=== PATIENT | male | born 1960 | race Asian ===

== ENCOUNTER 2017-06-30 20:21 | Emergency (ER) | payer OTHER, BC ==
[2017-06-30 20:47] VITALS: BP 160/98
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
== END 2017-07-01 00:05 | disposition home or self-care (01) ==
LOC: ED 20:21
DX: S39.012A Strain of muscle, fascia and tendon of lower back, initial encounter (principal); S00.83XA Contusion of other part of head, initial encounter; V47.6XXA Car passenger injured in collision with fixed or stationary object in traffic accident, initial encounter; Z87.891 Personal history of nicotine dependence; Y93.89 Activity, other specified; Y92.89 Other specified places as the place of occurrence of the external cause; Y99.8 Other external cause status
CPT/HCPCS: 70450; 99283

== ENCOUNTER 2019-12-03 12:31 | Emergency (ER) | payer SELFPAY ==
[2019-12-04 00:20] VITALS: BP 169/109
--- NOTE | 2019-12-04 00:20 | Emergency Department Report ---
HPI - General Time Seen by Provider: 12/04/19 00:09 - HPI HPI: Room 4 *Please note the patient was originally registered under a different ) and labs and imaging studies were under this account. The patient is a 59-year-old male present with a chief complaint of bilateral shoulder pain. Patient states he first #pain in his right shoulder 3 weeks ago. Patient denies any preceding trauma. The patient states the pain has mostly improve but 2 days ago he developed pain in his left shoulder. Again the patient denies preceding trauma. Patient denies history of fever or new rashes. Patient admits to pain with range of motion of the shoulders. ED Past Medical Hx - Past Medical History Hx Heart Attack/AMI: No Additional medical history: "heart unbalanced". "kidney problems" - Surgical History Past Surgical History?: No Additional Surgical History: Right middle and index finger amputation - Family History Family history: no significant - Social History Smoking Status: Former Smoker Substance Use Type: Alcohol - Medications Home Medications: Home Medications Medication Instructions Recorded Confirmed Last Taken Type Cyclobenzaprine [Flexeril 10 MG 10 mg PO QHS PRN #7 tablet 06/30/17 09/07/19 Unknown Rx TAB] LORazepam [Ativan] 1 mg PO BID #20 tab 09/08/19 Unknown Rx Metoprolol [Lopressor TAB] 25 mg PO BID #60 tablet 09/08/19 Unknown Rx Pantoprazole Sodium [Protonix] 40 mg PO QDAY #30 tab 09/08/19 Unknown Rx cephALEXin [Keflex] 500 mg PO Q6HR #30 capsule 09/08/19 Unknown Rx Valproic Acid [Depakene] 250 mg PO BID #60 capsule 10/20/19 Unknown Rx haloperidoL [Haldol] 5 mg PO BID #60 tablet 10/20/19 Unknown Rx Cyclobenzaprine [Flexeril] 10 mg PO TID PRN #10 tablet 12/04/19 Unknown Rx HYDROcodone/APAP 5-325 [[place] 1 - 2 each PO Q6HR PRN #10 tablet 12/04/19 Unknown Rx 5/325] Naproxen [Naprosyn] 500 mg PO BID #20 tablet 12/04/19 Unknown Rx ED Review of Systems ROS: Stated complaint: PAIN IN SHOULDER AND KNEE Other details as noted in HPI Constitutional: denies: fever Respiratory: no symptoms reported Endocrine: no symptoms reported Musculoskeletal: arthralgia, myalgia Skin: denies: rash Physical Exam - Physical Exam Physical Exam: GENERAL: The patient is well-developed well-nourished male sitting on stretcher not appearing to be in acute distress. [] HEENT: Normocephalic. Atraumatic. Extraocular motions are intact. Patient has moist mucous membranes. NECK: Supple. Trachea midline CHEST/LUNGS: Clear to auscultation. There is no respiratory distress noted. HEART/CARDIOVASCULAR: Regular. There is no tachycardia. There is no gallop rub or murmur. 2+ radial pulse bilaterally SKIN: There is no rash. There is no edema. There is no diaphoresis. NEURO: The patient is awake, alert, and oriented. The patient is cooperative. The patient has no focal neurologic deficits. The patient has normal speech MUSCULOSKELETAL: There is pain in the left shoulder with range of motion. There is no evidence of acute injury. Minimal discomfort in the right shoulder with range of motion ED Medical Decision Making - Lab Data 12/03/19 12/03/19 12/03/19 17:53 17:53 20:29 WBC 5.0 RBC 5.21 H Hgb 12.8 Hct 40.1 MCV 77 L MCH 25 L MCHC 32 RDW 16.0 H Plt Count 112 L Lymph % (Auto) 28.8 [place] % (Auto) 9.9 H Eos % (Auto) 3.4 Baso % (Auto) 1.0 Lymph # (Auto) 1.4 [place] # (Auto) 0.5 Eos # (Auto) 0.2 Baso # (Auto) 0.1 Seg Neutrophils % 56.9 Seg Neutrophils # 2.8 Sodium 140 Potassium 4.4 Chloride 99.9 Carbon Dioxide 25 Anion Gap 20 BUN 8 L Creatinine 0.7 L Estimated GFR > 60 BUN/Creatinine Ratio 11 Glucose 135 H Calcium 9.1 Troponin T < 0.010 < 0.010 - Radiology Data Radiology results: report reviewed (Chest x-ray), image reviewed (Chest x-ray, left shoulder x-ray) interpreted by me: Chest x-ray-no focal infiltrates, no pneumothorax. No foreign body seen Left shoulder x-ray-no fracture, no dislocation, no foreign body seen [facility] [address] [place] [address] XR ay Report Signed Patient: SHAHZAD SHORT MR#: [id number] : 1960 Acct:[id number] Age/Sex: 59 / M ADM Date: 12/03/19 Loc: ED Attending Dr: Ordering Physician: BRAYDEN HOPPER Date of Service: 12/03/19 Procedure(s): XR chest routine 2V Accession Number(s): [id number] cc: BRAYDEN HOPPER Fluoro Time In Minutes: CHEST 2 VIEWS INDICATION / CLINICAL INFORMATION: MAIN. Chest pain and bilateral shoulder pain for several days COMPARISON: None available. FINDINGS: SUPPORT DEVICES: None. HEART / MEDIASTINUM: No significant abnormality. LUNGS / PLEURA: No significant pulmonary or pleural abnormality. No pneumothorax. ADDITIONAL FINDINGS: No significant additional findings. IMPRESSION: No significant abnormality Signer Name: Bebeto Gonzales MD FACR Signed: 12/03/2019 6:20 PM Workstation Name: [id number] Transcribed By: MS Dictated By: Bebeto Gonzales MD Electronically Authenticated By: Bebeto Gonzales MD Signed Date/Time: 12/03/191819 DD/ 18 TD/TT: - Differential Diagnosis Arthritis, bursitis, rotator cuff injury, anxiety Critical care attestation.: If time is entered above; I have spent that time in minutes in the direct care of this critically ill patient, excluding procedure time. ED Disposition Clinical Impression: Bilateral shoulder pain Disposition: DC-01 TO HOME OR SELFCARE Is pt being admited?: No Does the pt Need Aspirin: No Condition: Stable Instructions: Rotator Cuff Injury (ED), Osteoarthritis (ED), Shoulder Bursitis (ED) Additional Instructions: Return to the emergency department should you develop worsening symptoms, inability to tolerate food or liquids, high fever or any other concerns Prescriptions: Cyclobenzaprine [Flexeril] 10 mg PO TID PRN #10 tablet PRN Reason: Muscle Spasm Naproxen [Naprosyn] 500 mg PO BID #20 tablet HYDROcodone/APAP 5-325 [[place] 5/325] 1 - 2 each PO Q6HR PRN #10 tablet PRN Reason: Pain Referrals: EBER COX MD [Staff Physician] - 3-5 Days (Dr. Cox is an orthopedic surgeon. Please follow-up with him for further evaluation) Time of Disposition: 00:25
[2019-12-04] MEDS ORDERED: IBUPROFEN 800 MG TAB PO ONE (00:33)
== END 2019-12-04 00:36 | disposition home or self-care (01) ==
LOC: ED 12:31
DX: M25.511 Pain in right shoulder (principal); M25.512 Pain in left shoulder
CPT/HCPCS: 99282